=== PATIENT | male | born 1985 | race Caucasian/White ===

== ENCOUNTER 2025-08-12 15:01 | Outpatient (CLI) | payer MEDICAID ==
[~2025-08-12 15:01] MED LIST: ONDA8TAB6 PO
--- NOTE | 2025-08-12 17:07 | RADIOLOGY REPORT ---
PROCEDURE: MR MRI C SPINE Indication: CERVICALGIA, PAIN IN R SHOULDER COMPARISON: None TECHNIQUE: Multiplanar multisequence images of the the cervical spine are obtained. FINDINGS: The cervical vertebral body heights are maintained. 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 There is reversal of normal cervical spine curvature. Moderate to severe multilevel disc space narrowing and desiccation. No prevertebral edema. Atlantooccipital, atlantoaxial articulation s intact. C2-3: Disc osteophyte complex which narrows the ventral and dorsal CSF spaces. Thecal sac measures 7 mm AP. Moderate spinal canal stenosis. Moderate left and mild right neural foraminal stenosis. C3-4: Disc osteophyte complex which narrows the ventral and dorsal CSF spaces. Thecal sac measures 7 mm AP. Moderate spinal canal stenosis. Moderate to severe bilateral neural foraminal stenosis. C4-5: Disc osteophyte complex narrowing the ventral and dorsal CSF spaces. Thecal sac measures 7 mm AP. Moderate spinal canal stenosis. Moderate to severe left and moderate right neural foraminal stenosis. C5-6: Disc osteophyte complex narrowing the ventral and dorsal CSF spaces thecal sac measures 7 mm AP. Moderate spinal canal stenosis. Moderate to severe left and moderate right neural foraminal stenosis. C6-7: Right paracentral disc osteophyte complex with right paracentral disc protrusion extending 5 mm posteriorly compressing upon the right lateral aspect of the cervical cord, descending right C8 nerve root. Severe bilateral neural foraminal stenosis. The thecal sac measures 6 mm AP consistent with moderate to severe spinal canal stenosis. C7-T1: Small disc osteophyte complex. Thecal sac measures 8 mm AP. [id number] spinal canal stenosis. Moderate to severe left and moderate right neural foraminal stenosis IMPRESSION: Moderate to severe cervical degenerative disc disease. Congenital narrowing of the spinal canal. Large right paracentral disc protrusion at C7 extending 5 mm posteriorly compressing upon the right lateral aspect of the cord as well as the descending right C8 nerve root. There is moderate to severe spinal canal stenosis at level. Recommend neurosurgical consultation. Multilevel moderate to severe spinal canal stenosis as described. Multilevel moderate to severe neural foraminal stenosis as described.
--- NOTE | 2025-08-12 18:00 | RADIOLOGY REPORT ---
EXAM: MR MRI UPPER EXTREMITY RIGHT HISTORY: CERVICALGIA, R SHOULDER PAIN COMPARISON: None TECHNIQUE: Multiplanar, multisequence MRI imaging of the right shoulder was performed. FINDINGS: Metallic artifact in the glenoid related to hardware Immediate signal throughout the distal supraspinatus tendon with probable tiny articular surface partial thickness insertional tear measuring only a few mm. Infraspinatus, teres minor, and subscapularis tendons are intact here Rotator cuff muscle bellies are unremarkable with no atrophy or intramuscular edema. No acutefracture or malalignment. No concerning marrow signal abnormality. Probable remote hill sachs impaction fracture of the superolateral humeral head Long head biceps tendon is intact with mild tenosynovitis. No obvious labral tear or paralabral cyst. Glenohumeral joint space is fairly well maintained. Mild degenerative changes of the AC joint. IMPRESSION: Mild supraspinatous tendinopathy with probable tiny partial thickness insertional tear versus significant fraying of the articular surface fibers. Mild degenerative changes at the AC joint. Sequela of prior anterior dislocation.
== END 2025-08-12 23:59 | disposition home or self-care (01) ==
LOC: MRI02 15:01
PROVIDERS: ATTEND Family Medicine
DX: M50.323 Other cervical disc degeneration at C6-C7 level (principal); M19.011 Primary osteoarthritis, right shoulder; M65.811 Other synovitis and tenosynovitis, right shoulder; M48.02 Spinal stenosis, cervical region; M25.511 Pain in right shoulder; M75.101 Unspecified rotator cuff tear or rupture of right shoulder, not specified as traumatic
CPT/HCPCS: 72141; 73221